=== PATIENT | female | born 1995 | race Caucasian/White ===

== ENCOUNTER 2020-03-08 11:37 | Emergency (ER) | payer MEDICAID ==
--- NOTE | 2020-03-08 11:56 | ER Document Report ---
ED Medical Screen (RME) - General Chief Complaint: Vaginal Bleeding Stated Complaint: VAGINAL BLEEDING Time Seen by Provider: 03/08/20 11:41 - HPI Notes: 03/08/20 11:53 25-year-old female with a history of anemia presents to the emergency room for evaluation of vaginal bleeding and cramping that has been occurring for the last 6 days. Patient states she is going through 1 pad an hour to 1 pad every 2 hours. Patient was started on control last month due to having irregular periods by her primary care provider. She is concerned that her heavy menstrual cycles causing her anemia to become worse. Denies any shortness of breath, nausea vomiting or diarrhea, denies any chest pains or fevers. Patient was recently put on Notrel after having a starter pack. Patient has not had a pelvic exam since 5 years ago I have greeted and performed a rapid initial assessment of this patient. A comprehensive ED assessment and evaluation of the patient, analysis of test results and completion of the medical decision making process will be conducted by additional ED providers. PHYSICAL EXAMINATION: CV: s1, s2 regular LUNGS: No respiratory distress abd: suprapubic tenderness Physical Exam - Vital signs Vitals: Temp Pulse Resp BP Pulse Ox 98.6 F 99 20 146/80 H 100 03/08/20 11:42 03/08/20 11:42 03/08/20 11:42 03/08/20 11:42 03/08/20 11:42 Course - Vital Signs Vital signs: Temp Pulse Resp BP Pulse Ox 98.6 F 99 20 146/80 H 100 03/08/20 11:42 03/08/20 11:42 03/08/20 11:42 03/08/20 11:42 03/08/20 11:42
[2020-03-08 12:31] LABS: ABSOLUTE EOSINOPHILS # (AUTO) 0.1 10^3/uL (0.0-0.6); ABSOLUTE MONOCYTES (AUTO) 0.4 10^3/uL (0.1-1.4); ABSOLUTE NEUT (AUTO) 3.7 10^3/uL (1.7-8.2); BASOPHILS % (AUTO) 0.7 % (0-2); HEMOGLOBIN 11.3 g/dL (12.0-15.5); LYMPHOCYTES % (AUTO) 31.7 % (13-45); MEAN CORPUSCULAR HEMOGLOBIN 25.9 pg (27.0-33.4); MEAN CORPUSCULAR HGB CONC 33.3 g/dL (32.0-36.0); MEAN CORPUSCULAR VOLUME 78 fl (80-97); MONOCYTES % (AUTO) 6.5 % (3-13); PLATELET COUNT 239 10^3/uL (150-450); RED BLOOD COUNT 4.36 10^6/uL (3.72-5.28); RED CELL DISTRIBUTION WIDTH 15.9 % (11.5-14.0); SEGMENTED NEUTROPHILS % (AUTO) 59.1 % (42-78); TOTAL CELLS COUNTED % (AUTO) 100 %; WHITE BLOOD COUNT 6.2 10^3/uL (4.0-10.5)
[2020-03-08 12:34] LABS: APPEARANCE,URINE CLOUDY; BILIRUBIN,URINE NEGATIVE (NEGATIVE); COLOR,URINE RED; GLUCOSE, URINE NEGATIVE (NEGATIVE); KETONES,URINE NEGATIVE (NEGATIVE); LEUKOCYTE ESTERASE,URINE SMALL (NEGATIVE); NITRITE,URINE NEGATIVE (NEGATIVE); PROTEIN,URINE >=500 mg/dL (NEGATIVE); URINE SPECIFIC GRAVITY 1.029; UROBILINOGEN,URINE NEGATIVE mg/dL (<2.0)
[2020-03-08 12:47] LABS: ALBUMIN 3.6 g/dL (3.5-5.0); ALKALINE PHOSPHATASE 83 U/L (38-126); ANION GAP 7 (5-19); ASPARTATE AMINO TRANSFERASE 26 U/L (14-36); BILIRUBIN,TOTAL 0.2 mg/dL (0.2-1.3); BLOOD UREA NITROGEN 14 mg/dL (7-20); CALCIUM 8.9 mg/dL (8.4-10.2); CARBON DIOXIDE 23 mmol/L (22-30); CHLORIDE 109 mmol/L (98-107); GLUCOSE 117 mg/dL (75-110); POTASSIUM 3.9 mmol/L (3.6-5.0); TOTAL PROTEIN 6.9 g/dL (6.3-8.2)
--- NOTE | 2020-03-08 13:19 | RADIOLOGY REPORT (SQ) ---
EXAM DESCRIPTION: U/S NON-OB PELVIS W/O DOP IMAGES COMPLETED DATE/TIME: 03/08/2020 1:07 pm REASON FOR STUDY: heavy vaginal bleeding, cramping COMPARISON: None. TECHNIQUE: Dynamic and static grayscale images acquired of the pelvis via transabdominal approach an d recorded on PACS. Additional selected color Doppler and spectral images recorded. LIMITATIONS: None. FINDINGS: UTERUS: Contour normal. No mass. ENDOMETRIAL STRIPE: No focal or generalized thickening. No masses. CERVIX: No nabothian cysts. RIGHT OVARY AND DOPPLER: Normal size. No worrisome masses. Flow was not assessed LEFT OVARY AND DOPPLER: Left ovary not visualized due to overlying bowel gas. FREE FLUID: None noted. OTHER: No other significant finding. MEASUREMENTS: UTERUS: 10.2 x 7.5 x 5.7 cm. ENDOMETRIAL STRIPE: 2.3 cm. RIGHT OVARY: 3.9 x 3.5 x 2.3 cm. LEFT OVARY: Not visualized. IMPRESSION: Nonvisualization of left ovary. No other significant findings. TECHNICAL DOCUMENTATION: JOB ID: [id number] [employer]- All Rights Reserved Rev-01/02 Reading location - IP/workstation name: [email or web address]
[2020-03-08] MEDS ORDERED: KETOROLAC TROMETHAMINE 60 MG/2 ML SDV IM ONE (17:39)
[2020-03-08] MEDS ORDERED: TRANEXAMIC ACID INJ/PF 1,000 MG/10 ML SDV IV ONE (18:41)
[2020-03-08] MEDS ORDERED: MEDROXYPROGESTERONE ACET 10 MG TABLET PO ONE (18:42)
--- NOTE | 2020-03-08 18:42 | ER Document Report ---
ED GI/ - General Chief Complaint: Vaginal Bleeding Stated Complaint: VAGINAL BLEEDING Time Seen by Provider: 03/08/20 11:41 Primary Care Provider: CAROLEE VERDUZCO MD [EMERITUS] - Follow up as needed JEAN EDMOND MD [EMERITUS] - Follow up as needed DISHA ZAMORA MD [ACTIVE STAFF] - Follow up as needed REMINGTON PAEZ NP [NURSE PRACTITIONER] - Follow up as needed Mode of Arrival: Ambulatory Information source: Patient Notes: 25-year-old female patient presents emergency department chief complaint of vaginal bleeding. Patient reports the bleeding has been going on for at least 1 month. She states that it has been worse over the last 6 days. She saw her primary care provider for this who started her on control pills. She states she is taking Notrel. She states she is going through 1 pad every 1-2 hours. She denies any weakness, dizziness or syncope. She states she has had heavy periods since her daughter was born 4 years ago. - Related Data Allergies/Adverse Reactions: No Known Allergies Allergy (Unverified 03/08/20 16:48) Home Medications: Wellbutrin, Nortrel Past Medical History - General Information source: Patient - Social History Smoking Status: Former Smoker Frequency of alcohol use: None Drug Abuse: None Family History: Reviewed & Not Pertinent - Medical History Medical History: Negative Surgical Hx: Negative - Immunizations Immunizations up to date: Yes Review of Systems - Review of Systems Female Genitourinary: Heavy/abnormal periods, Vaginal bleeding -: Yes All other systems reviewed and negative Physical Exam - Vital signs Vitals: Temp Pulse Resp BP Pulse Ox 98.6 F 99 20 146/80 H 100 03/08/20 11:42 03/08/20 11:42 03/08/20 11:42 03/08/20 11:42 03/08/20 11:42 - Notes Notes: PHYSICAL EXAMINATION: GENERAL: Well-appearing, well-nourished and in no acute distress. HEAD: Atraumatic, normocephalic. EYES: Pupils equal round and reactive to light, extraocular movements intact, conjunctiva are normal. ENT: Nares patent, oropharynx clear without exudates. Moist mucous membranes. NECK: Normal range of motion, supple without lymphadenopathy LUNGS: Breath sounds clear to auscultation bilaterally and equal. No wheezes rales or rhonchi. HEART: Regular rate and rhythm without murmurs ABDOMEN: Soft, nontender, nondistended abdomen. No guarding, no rebound. No masses appreciated. Female : Normal external genitalia, small to medium amount of dark red blood noted. No cervical motion or adnexal tenderness. Musculoskeletal: Normal range of motion, no pitting or edema. No cyanosis. NEUROLOGICAL: Cranial nerves grossly intact. Normal speech, normal gait. Normal sensory, motor exams PSYCH: Normal mood, normal affect. SKIN: Warm, Dry, normal turgor, no rashes or lesions noted. Course - Re-evaluation Re-evalutation: Patient appears well, nontoxic, vital signs reviewed and are within normal limits. Patient's work-up today is reassuring. Hemoglobin is 11. Transvaginal ultrasound unremarkable. A speculum exam was performed patient does have a mild amount of dark red blood in the vaginal vault. There is a minimal amount of active bleeding at this time. Given patient's report of having to change her clothes twice since being in the emergency department I will administer 1 g of IV TXA and will start patient on Provera. She has an appointment with her primary care provider tomorrow. She will obtain a referral to get an appointment with a [facility]. ED return precautions discussed, patient verbalized understanding and agreement with same - Vital Signs Vital signs: Temp Pulse Resp BP Pulse Ox 97.6 F 99 20 146/80 H 100 03/08/20 16:36 03/08/20 11:42 03/08/20 11:42 03/08/20 11:42 03/08/20 11:42 - Laboratory Result Diagrams: 03/08/20 12:03 03/08/20 12:03 Laboratory results interpreted by me: 03/08/20 03/08/20 03/08/20 12:03 12:03 12:03 Hgb 11.3 L Hct 34.0 L MCV 78 L MCH 25.9 L RDW 15.9 H Chloride 109 H Glucose 117 H ALT 65 H Urine Protein >=500 H Urine Blood LARGE H Ur Leukocyte Esterase SMALL H Discharge - Discharge Clinical Impression: Dysmenorrhea Condition: Stable Disposition: HOME, SELF-CARE Additional Instructions: You were seen today for dysfunctional uterine bleeding. This is when you have vaginal bleeding and abdominal cramping off of your normal menstrual cycle. You have been started on hormoneol pills to help regulate your cycle and control your symptoms. You need to follow-up with [employer] or your primary care physician the next 1-3 days. Return immediately if you worsening pain, you began bleeding through more than 2 pads per hour for more than 3 hours, you pass out, have persistent vomiting, develop a fever greater than 100.4F, or any other symptoms that are concerning to you. You were seen in the emergency department today with complaints of persistent vaginal bleeding. Please keep the appointment you have tomorrow with your primary care provider. Stop taking the control pills and start taking the Provera for the next 10 days. Let your primary care provider know that we also gave you a dose of IV TXA. I have enclosed a copy of your labs and your ultrasound today for her review. It would be important to have a referral placed for gynecology. I have enclosed a list of several in the area. Return to the emergency department for any new or worsening symptoms. Prescriptions: Medroxyprogesterone Acet [Provera 10 Mg Tablet] 10 mg PO DAILY #10 tablet Referrals: REMINGTON PAEZ NP [NURSE PRACTITIONER] - Follow up as needed JEAN EDMOND MD [EMERITUS] - Follow up as needed CAROLEE VERDUZCO MD [EMERITUS] - Follow up as needed DISHA ZAMORA MD [ACTIVE STAFF] - Follow up as needed
[2020-03-08 20:09] VITALS: BP 140/70
== END 2020-03-08 20:12 | disposition home or self-care (01) ==
LOC: ER 11:37
DX: N94.6 Dysmenorrhea, unspecified (principal); R10.9 Unspecified abdominal pain; Z79.3 Long term (current) use of hormonal contraceptives
CPT/HCPCS: 99284; 96372; 96374; 36415; 83690; 85025; 81025; 80053; 81001; 76856; J1885; J3490 ×2